=== PATIENT | female | born 1970 | race Two or more races ===

== ENCOUNTER 2023-09-27 15:08 | Inpatient (IN) | payer OTHER ==
[~2023-09-27] VITALS: Ht 154.9 cm; Wt 51.3 kg
[2023-09-27] MEDS ORDERED: ZADITOR5 ML (15:28)
[2023-09-27] MEDS ORDERED: LOPERAMIDE2 M1 (15:28)
[2023-09-27] MEDS ORDERED: LACTAID FAS9000 UNI1 (15:28)
[2023-09-27] MEDS ORDERED: PLAVIX75 MG (15:28)
[2023-09-27] MEDS ORDERED: HYDROXYCHLOROQ200 MG (15:28)
[2023-09-27] MEDS ORDERED: ZANAFLEX4 M1 (15:29)
[2023-09-27] MEDS ORDERED: PRISTIQ ER100 MG (15:29)
[2023-09-27] MEDS ORDERED: BACLOFEN20 MG (15:29)
[2023-09-27] MEDS ORDERED: TRAMADOL HCL50 MG (15:29)
[2023-09-27] MEDS ORDERED: NEURONTIN800 MG (15:29)
[2023-09-27] MEDS ORDERED: TAMS0.4C (15:29)
[2023-09-27] MEDS ORDERED: ESTAZOLAM2 MG (15:30)
[2023-09-27] MEDS ORDERED: SINGULAIR10 MG (15:30)
[2023-09-27] MEDS ORDERED: INTESTINEX680 M1 (15:30)
[2023-09-27] MEDS ORDERED: ATORVASTATIN CA10 MG (15:30)
[2023-09-27] MEDS ORDERED: ZOFRAN8 MG (15:30)
[2023-09-27] MEDS ORDERED: ARICEPT5 MG (15:31)
[2023-09-27] MEDS ORDERED: MEMANTINE HCL5 MG (15:31)
[2023-09-27] MEDS ORDERED: TOPIRAMATE100 MG (15:31)
[2023-09-27 20:54] LABS: HEMATOCRIT 33.2 % (36.0-45.00); HEMOGLOBIN 11.3 g/dL (12.0-15.00); MEAN CELL VOLUME 91.1 fL (80.00-100.00); MEAN CORPUSCULAR HEMOGLOBIN 31.1 pg (27.00-32.0); MEAN CORPUSCULAR HGB CONC 34.1 g/dl (32.0-36.0); PLATELET COUNT 270 K/uL (150-450); RED BLOOD COUNT 3.65 M/uL (4.00-6.00); RED CELL DISTRIBUTION WIDTH 13.6 % (11.5-14.5)
[2023-09-27 21:21] LABS: ALBUMIN 2.6 gm/dL (3.4-5.0); BILIRUBIN TOTAL 0.87 mg/dL (0.3-1.2); CREATININE SERUM 0.72 mg/dL (0.55-1.02); GFR 84.73; GLOBULINA 4.1 G/DL (2.4-3.5); TOTAL PROTEIN 6.7 gm/dL (6.4-8.2)
[2023-09-27 21:34] LABS: POTASSIUM 2.93 mEq/L (3.5-5.1)
[2023-09-28 02:55] LABS: URINE APPEARANCE Clear; URINE BILIRRUBIN Negative (NEGATIVE); URINE BLOOD Negative; URINE COLOR Dark Yellow; URINE GLUCOSE Negative (NEGATIVE); URINE LEUKOCYTE Trace; URINE NITRATE Negative; URINE PROTEIN 30 (NEGATIVE)
[2023-09-28 02:59] LABS: URINE BACTERIA 1879.7 uL (0.0-1933); URINE EPITHELIAL CELLS 47.4 uL (0.0-38.8); URINE RBC 22.9 uL (0.0-20.8); URINE WBC 25.6 uL (0.0-23.2)
[2023-09-28 04:23] LABS: ABG PH 7.437 (7.35-7.45); ABG PO2 78.4 mmHg (80-100); ABG pCO2 30.1 mmHg (35-45); BICARBONATE 19.9 mmol/l (23-25); SaO2 95.8 %; Tco2 20.8 mmol/l; o2 21 %; puncture site RADIAL RIGHT
[2023-09-28 04:24] LABS: allen test SATISFACTORY
[2023-09-28 06:00] LABS: CALCIUM 7.9 mg/dL (8.5-10.1); CREATININE SERUM 0.58 mg/dL (0.55-1.02); GFR 108.75; POTASSIUM 3.29 mEq/L (3.5-5.1)
[2023-09-28 16:34] LABS: FECAL LEUKOCYTES POSITIVE (NEGATIVE); ob NEGATIVE (NEGATIVE)
[2023-09-28 21:45] LABS: HEMATOCRIT 31.4 % (36.0-45.00); HEMOGLOBIN 10.8 g/dL (12.0-15.00); MEAN CORPUSCULAR HEMOGLOBIN 31.4 pg (27.00-32.0); MEAN CORPUSCULAR HGB CONC 34.5 g/dl (32.0-36.0); PLATELET COUNT 284 K/uL (150-450); RED BLOOD COUNT 3.45 M/uL (4.00-6.00); RED CELL DISTRIBUTION WIDTH 13.8 % (11.5-14.5)
[2023-09-29 06:33] LABS: HEMATOCRIT 30.2 % (36.0-45.00); HEMOGLOBIN 10.5 g/dL (12.0-15.00); MEAN CELL VOLUME 90.5 fL (80.00-100.00); MEAN CORPUSCULAR HEMOGLOBIN 31.4 pg (27.00-32.0); MEAN CORPUSCULAR HGB CONC 34.7 g/dl (32.0-36.0); PLATELET COUNT 272 K/uL (150-450); RED BLOOD COUNT 3.33 M/uL (4.00-6.00)
[2023-09-29 07:23] LABS: ALBUMIN 2.2 gm/dL (3.4-5.0); BILIRUBIN TOTAL 0.69 mg/dL (0.3-1.2); BILIRUBIN,CONJUGATED 0.23 mg/dL (0.0-0.2); BILIRUBIN,UNCONJUGATED 0.46 mg/dL (0.0-0.6)
[2023-09-29 09:19] LABS: URINE APPEARANCE Clear; URINE BILIRRUBIN Negative (NEGATIVE); URINE BLOOD Negative; URINE COLOR Yellow; URINE GLUCOSE Negative (NEGATIVE); URINE LEUKOCYTE Negative; URINE NITRATE Negative; URINE PROTEIN Negative (NEGATIVE)
[2023-09-29 09:23] LABS: URINE BACTERIA 1044.4 uL (0.0-1933); URINE EPITHELIAL CELLS 12.3 uL (0.0-38.8); URINE RBC 5.8 uL (0.0-20.8)
[2023-09-30 08:13] LABS: ALBUMIN 2.2 gm/dL (3.4-5.0); BILIRUBIN TOTAL 0.85 mg/dL (0.3-1.2); CALCIUM 7.4 mg/dL (8.5-10.1); CREATININE SERUM 0.42 mg/dL (0.55-1.02); GFR 157.82; GLOBULINA 2.9 G/DL (2.4-3.5); POTASSIUM 3.24 mEq/L (3.5-5.1); TOTAL PROTEIN 5.1 gm/dL (6.4-8.2)
[2023-09-30 08:24] LABS: HEMOGLOBIN 10.6 g/dL (12.0-15.00); MEAN CELL VOLUME 89.7 fL (80.00-100.00); MEAN CORPUSCULAR HEMOGLOBIN 30.7 pg (27.00-32.0); MEAN CORPUSCULAR HGB CONC 34.3 g/dl (32.0-36.0); PLATELET COUNT 307 K/uL (150-450); RED BLOOD COUNT 3.46 M/uL (4.00-6.00); RED CELL DISTRIBUTION WIDTH 13.9 % (11.5-14.5)
[2023-09-30 08:25] LABS: C-REACTIVE PROTEIN 17.1 MG/DL (0.00-0.29); FERRITIN 816.9 NG/ML (8-252)
[2023-09-30 09:20] LABS: ERYTHROCYTE SEDIMENTATION RATE 114 mm/hr
[2023-09-30 11:00] LABS: ABG PH 7.446 (7.35-7.45)
[2023-09-30 11:02] LABS: ABG pCO2 26.8 mmHg (35-45)
[2023-09-30 11:03] LABS: BASE EXCESS -4.3 mmol/l; SaO2 90.3 %
[2023-09-30 11:04] LABS: Tco2 18.8 mmol/l; allen test SATISFACTORY; o2 21 %; puncture site RADIAL LEFT
[2023-10-01 13:01] LABS: ABG PH 7.449 (7.35-7.45); ABG pCO2 31.6 mmHg (35-45)
[2023-10-01 13:02] LABS: BASE EXCESS -1.5 mmol/l; BICARBONATE 21.4 mmol/l (23-25); SaO2 91.4 %; Tco2 22.4 mmol/l; o2 21 %
[2023-10-01 13:03] LABS: allen test SATISFACTORY; puncture site RADIAL RIGHT
[2023-10-02 06:07] LABS: HEMATOCRIT 28.6 % (36.0-45.00); HEMOGLOBIN 10.1 g/dL (12.0-15.00); MEAN CELL VOLUME 90.1 fL (80.00-100.00); MEAN CORPUSCULAR HEMOGLOBIN 31.8 pg (27.00-32.0); MEAN CORPUSCULAR HGB CONC 35.4 g/dl (32.0-36.0); PLATELET COUNT 358 K/uL (150-450); RED BLOOD COUNT 3.18 M/uL (4.00-6.00); RED CELL DISTRIBUTION WIDTH 13.9 % (11.5-14.5)
[2023-10-02 07:27] LABS: ALBUMIN 2.1 gm/dL (3.4-5.0); BILIRUBIN TOTAL 1.12 mg/dL (0.3-1.2); CALCIUM 7.7 mg/dL (8.5-10.1); CREATININE SERUM 0.4 mg/dL (0.55-1.02); GFR 166.97; GLOBULINA 3.2 G/DL (2.4-3.5); TOTAL PROTEIN 5.3 gm/dL (6.4-8.2)
[2023-10-02 07:49] LABS: POTASSIUM 2.87 mEq/L (3.5-5.1)
[2023-10-02] MEDS ORDERED: VALACYCLOVIR1000 MG (08:12)
[2023-10-02] MEDS ORDERED: SYNTHROID100 MCG (08:12)
[2023-10-02] MEDS ORDERED: LOSARTAN POTAS100 MG (08:12)
[2023-10-02] MEDS ORDERED: ALPRAZOLAM0.25 MG (08:12)
[2023-10-02] MEDS ORDERED: NORVASC2.5 MG (08:13)
[2023-10-02] MEDS ORDERED: ALENDRONATE SOD35 MG (08:13)
[2023-10-03 19:21] LABS: ABG PH 7.513 (7.35-7.45); ABG PO2 72.3 mmHg (80-100); ABG pCO2 31.3 mmHg (35-45)
[2023-10-03 19:22] LABS: BASE EXCESS 2.4 mmol/l; BICARBONATE 24.6 mmol/l (23-25); Tco2 25.5 mmol/l
[2023-10-03 19:23] LABS: allen test SATISFACTORY; o2 21 %; puncture site RADIAL RIGHT
[2023-10-03 19:45] LABS: CALCIUM 8.2 mg/dL (8.5-10.1); CREATININE SERUM 0.68 mg/dL (0.55-1.02); GFR 90.51
[2023-10-03 19:50] LABS: POTASSIUM 2.83 mEq/L (3.5-5.1)
== END 2023-10-05 12:34 | disposition home or self-care (01) | DRG 195 ==
LOC: ER 15:08 → MEDI 09-28 23:04 → MEDJ 09-29 16:32
PROVIDERS: General Practice; Internal Medicine; Student in an Organized Health Care Education/Training Program; ADMIT Internal Medicine; ATTEND Internal Medicine
PROC: BW21YZZ Computerized Tomography (CT Scan) of Abdomen and Pelvis using Other Contrast (ICD-10-PCS; principal; 2023-09-28)
PROC: BW24YZZ Computerized Tomography (CT Scan) of Chest and Abdomen using Other Contrast (ICD-10-PCS; 2023-09-29)
DX: J18.9 Pneumonia, unspecified organism (principal); K52.9 Noninfective gastroenteritis and colitis, unspecified; M32.9 Systemic lupus erythematosus, unspecified; D69.2 Other nonthrombocytopenic purpura; E87.6 Hypokalemia; U09.9 Post COVID-19 condition, unspecified; K58.9 Irritable bowel syndrome, unspecified